=== PATIENT | male | born 1965 ===

== ENCOUNTER 2017-06-13 19:13 | Emergency (ER) | payer BC ==
[2017-06-13 19:20] VITALS: BP 142/98
--- NOTE | 2017-06-13 19:30 | UC ---
Respiratory Complaint HPI - History of Current Complaint Chief Complaint: UCGeneralIllness Stated Complaint: COLD SYMPTOMS,COUGH Time Seen by Provider: 06/13/17 19:24 Hx Obtained From: Patient Onset/Duration: Gradual Onset - cough over the past week., Worse Since - in the last 2 days. Severity Initially: Mild Severity Currently: Moderate Character: Cough: Productive Alleviating Factors: Nothing Associated Signs And Symptoms: Positive: Pleuritic Chest Pain, URI, Nasal Congestion. Negative: Sinus Discomfort Related History: Seasonal Allergies - Risk Factors Pulmonary Embolism Risk Factors: Negative - Allergies/Home Medications Allergies/Adverse Reactions: Allergies Allergy/AdvReac Type Severity Reaction Status Date / Time No Known Allergies Allergy Verified 06/13/17 19:16 Home Medications: Home Medications Chlorpheniramine-Phenylephrine [Coricidin D Cold/Flu/Sinu 2-5-325 mg] 1 tab PO Q6H PRN 06/13/17 [History Confirmed 06/13/17] GuaiFENesin DM* [Robitussin DM*] 10 ml PO Q6H PRN 06/13/17 [History Confirmed ] Loratadine [Claritin 10 MG CAP] 10 mg PO DAILY 06/13/17 [History Confirmed 06/13] PMH/Surg Hx/FS Hx/Imm Hx Previously Healthy: Yes - Surgical History Surgical History: None - Family History Known Family History: Positive: Hypertension Negative: Cardiac Disease, Diabetes - Social History Occupation: Employed Full-time Lives: With Family Alcohol Use: Occasionally Substance Use Type: None Smoking Status (MU): Never Smoked Tobacco Review of Systems ENT: Sore Throat, Nasal Discharge Respiratory: Cough - coughing fits. All Other Systems Reviewed And Are Negative: Yes Physical Exam Triage Information Reviewed: Yes Appearance: No Pain Distress, Well-Nourished, Ill-Appearing - mildly Vital Signs: Initial Vital Signs Temp 98.2 F 06/13/17 19:17 Pulse 99 06/13/17 19:17 Resp 16 06/13/17 19:17 BP 142/98 06/13/17 19:17 Pulse Ox 98 06/13/17 19:17 Vital Signs Reviewed: Yes Eyes: Positive: Conjunctiva Clear ENT: Positive: Pharynx normal, Nasal congestion, TMs normal Neck exam: Normal Respiratory: Positive: Lungs clear, Wheezing - expiratory wheezes with cough Cardiovascular Exam: Normal Musculoskeletal Exam: Normal Neurological Exam: Normal Psychological Exam: Normal Skin Exam: Normal UC Diagnostic Evaluation - Laboratory O2 Sat by Pulse Oximetry: 98 Respiratory Course/Dx - Differential Dx/Diagnosis Differential Diagnosis/HQI/PQRI: Asthma, Lower Resp Infection, Sinusitis Provider Diagnoses: Acute URI. Acute bronchospasm. Discharge - Discharge Plan Condition: Stable Disposition: HOME Prescriptions: predniSONE TAB* [Deltasone TAB*] 20 mg PO DAILY #18 tab Patient Education Materials: Upper Respiratory Infection (ED), Bronchospasm (ED ), Prednisone (By mouth), Albuterol (By breathing), How to Use a Metered-Dose Inhaler and a Spacer (ED)
[2017-06-13] MEDS ORDERED: predniSONE TAB* 20 MG PO ONE (19:41)
[2017-06-13] MEDS ORDERED: Albuterol HFA INHALER* 8 gm MDI INH ONE (19:41)
== END 2017-06-13 20:06 | disposition home or self-care (01) ==
LOC: UCCORT 19:13
DX: J06.9 Acute upper respiratory infection, unspecified (principal); J98.01 Acute bronchospasm
CPT/HCPCS: 99202; A9270-GY; G0463; J7512